=== PATIENT | male | born 1940 | race Caucasian/White ===

== ENCOUNTER 2017-07-30 10:57 | Emergency (ER) | payer MEDICARE, BC ==
--- NOTE | 2017-07-30 11:29 | Emergency Department Record ---
History of Present Illness - General Chief complaint: Rectal bleeding Stated complaint: BLOOD IN STOOL Time Seen by Provider: 07/30/17 11:14 Source: Patient Mode of Arrival: Wheelchair Limitations: No limitations - History of Present Illness Initial comments: pt had rectal bleeding 3x yesterday. there was enough blood that the water turned red. no c/d. no hx of hemorrhoids. he had a colonoscopy 15-20 yrs ago complaint: Gross hematochezia Onset/Timin -: Days(s) Radiation: None Improves with: None Worsens with: None Context: Other Associated Symptoms: Other Treatments Prior to Arrival: None - Related Data Home Medications Medication Instructions Recorded Confirmed Last Taken Aspirin [Adult Aspirin] 81 mg PO DAILY 07/30/17 07/30/17 07/29/17 Previous Rx's Medication Instructions Recorded Amoxicillin/Potassium Clav 1 tab PO BID #20 tab 07/30/17 [Augmentin 875-125 Tablet] Allergies Allergy/AdvReac Type Severity Reaction Status Date / Time No Known Allergies Allergy PT UNSURE Unverified 07/30/17 11:01 OF REACTION Travel Screening - Travel/Exposure Within Last 30 Days Have you traveled within the last 30 days?: Yes Location Detail:: [place] - Travel/Exposure Within Last Year Have you traveled outside the [place] in the last year?: No - Additonal Travel Details Have you been exposed to anyone with a communicable illness?: No - Travel Symptoms Symptom Screening: None Review of Systems Reviewed: No additional complaints except as noted below Constitutional: Reports: As per HPI. Denies: Chills, Fever, Malaise, Night sweats, Weakness, Weight change Eyes: Reports: As per HPI. Denies: Eye discharge, Eye pain, Photophobia, Vision change ENT: Reports: As per HPI. Denies: Congestion, Dental pain, Ear pain, Epistaxis , Hearing loss, Throat pain Respiratory: Reports: As per HPI. Denies: Cough, Dyspnea, Hemoptysis, Stridor, Wheezes Cardiovascular: Reports: As per HPI. Denies: Arrhythmia, Chest pain, Dyspnea on exertion, Edema, Murmurs, Orthopnea, Palpitations, Paroxysmal nocturnal dyspnea, Rheumatic Fever, Syncope Endocrine: Reports: As per HPI. Denies: Fatigue, Heat or cold intolerance, Polydipsia, Polyuria Gastrointestinal: Reports: As per HPI, Hematochezia. Denies: Abdominal pain, Constipation, Diarrhea, Hematemesis, Melena, Nausea, Vomiting Genitourinary: Reports: As per HPI. Denies: Dysuria, Frequency, Hematuria, Incontinence, Retention, Testicular pain, Testicular mass, Urgency Musculoskeletal: Reports: As per HPI. Denies: Arthralgia, Back pain, Gout, Joint swelling, Myalgia, Neck pain Skin: Reports: As per HPI. Denies: Bruising, Change in color, Change in hair/ nails, Lesions, Pruritus, Rash Neurological: Reports: As per HPI, Abnormal gait, Weakness. Denies: Confusion, Headache, Numbness, Paresthesias, Seizure, Tingling, Tremors, Vertigo Psychiatric: Reports: As per HPI. Denies: Anxiety, Auditory hallucinations, Depression, Homicidal thoughts, Suicidal thoughts, Visual hallucinations Hematological/Lymphatic: Reports: As per HPI. Denies: Anemia, Blood Clots, Easy bleeding, Easy bruising, Swollen glands Past Medical History - SOCIAL HISTORY Smoking Status: Never smoker Alcohol Use: None Drug Use: None - RESPIRATORY Hx Respiratory Disorders: Yes Comment:: MG - CARDIOVASCULAR Hx Cardio Disorders: Yes Hx Hypertension: Yes - NEURO Hx Neuro Disorders: Yes Comment:: MG - GI Hx GI Disorders: Yes Hx Diverticulitis: Yes Comment:: Dr Stapleton diagnosed him 10 years ago. - Hx Genitourinary Disorders: Yes Hx Kidney Stones: Yes - ENDOCRINE Hx Endocrine Disorders: Yes Hx Diabetes: Yes - MUSCULOSKELETAL Hx Musculoskeletal Disorders: Yes Comment:: MG - PSYCH Hx Psych Problems: No - HEMATOLOGY/ONCOLOGY Hx Hematology/Oncology Disorders: No Family Medical History Any Significant Family History?: No Physical Exam - General General Appearance: Alert, Oriented x3, Cooperative, Mild distress - Head Head exam: Normal inspection - Eye Eye exam: Normal appearance, PERRL, EOMI Pupils: Normal accommodation - ENT ENT exam: Normal exam, Mucous membranes moist, Normal external ear exam, Normal orophraynx Ear exam: Normal external inspection. negative: External canal tenderness Nasal Exam: Normal inspection. negative: Discharge, Sinus tenderness Mouth exam: Normal external inspection, Tongue normal Teeth exam: Normal inspection. negative: Dental caries Throat exam: Normal inspection. negative: Tonsillar erythema, Tonsillar exudate - Neck Neck exam: Normal inspection, Full ROM. negative: Tenderness - Respiratory Respiratory exam: Normal lung sounds bilaterally. negative: Respiratory distress - Cardiovascular Cardiovascular Exam: Regular rate, Normal rhythm, Normal heart sounds - GI/Abdominal GI/Abdominal exam: Soft, Normal bowel sounds. negative: Tenderness - Rectal Rectal exam: Heme (+) stool - exam: Deferred - Extremities Extremities exam: Normal inspection, Full ROM, Normal capillary refill. negative: Tenderness - Back Back exam: Reports: Normal inspection, Full ROM. Denies: Muscle spasm, Rash noted, Tenderness - Neurological Neurological exam: Alert, CN II-XII intact, Normal gait, Oriented X3 - Psychiatric Psychiatric exam: Normal affect, Normal mood - Skin Skin exam: Dry, Intact, Normal color, Warm Course Vital Signs 07/30/17 11:05 Temperature 97.6 F Pulse Rate 70 Respiratory 18 Rate Blood Pressure 144/79 Pulse Ox 96 - Reevaluation(s) Reevaluation #1: 07/30/17 13:33 d/w dr stapleton Reevaluation #2: 07/30/17 13:34 pt has had no reoccurences of bleeding today. pt given option of being transferred to [facility] or attempt at home. he wants to go home Medical Decision Making - Lab Data Result diagrams: 07/30/17 11:10 07/30/17 11:10 Disposition Disposition: Discharge Clinical Impression: Diverticulitis large intestine Qualifiers: Diverticulitis bleeding: with bleeding Diverticulitis complication: without perforation or abscess Qualified Code(s): K57.33 - Diverticulitis of large intestine without perforation or abscess with bleeding GI bleed Qualifiers: GI bleed type/associated pathology: diverticulitis Qualified Code(s): K57.93 - Diverticulitis of intestine, part unspecified, without perforation or abscess with bleeding Disposition: Home, Self-Care Condition: (1) Good Instructions: Diverticulitis (ED), Rectal Bleeding (ED) Additional Instructions: follow up with family doctor and with dr stapleton. if bleeding reoccurs go to [facility] where a bleeding scan and coiling can be done or return here Prescriptions: Amoxicillin/Potassium Clav [Augmentin 875-125 Tablet] 1 tab PO BID #20 tab Forms: Patient Portal Access Quality - Quality Measures Quality Measures: N/A - Blood Pressure Screening Does Patient Have Any of the Following: Active Dx of HTN Blood Pressure Classification: Hypertensive Reading Systolic Measurement: 144 Diastolic Measurement: 79 Screening for High Blood Pressure: Patient Exclusion, Hx of HTN [G9744]
[2017-07-30 11:30] LABS: BASO % 0.1 % (0-6); HEMATOCRIT 42.2 % (42.0-52.0); HEMOGLOBIN 13.8 gm/dl (14.0-18.0); LYMPH % 13.1 % (16-45); MEAN CELL VOLUME 90.9 fl (81-97); MEAN CORPUSCULAR HEMOGLOBIN 29.7 pg (27-33); MEAN CORPUSCULAR HGB CONC 32.7 g/dl (32-36); MEAN PLATELET VOLUME 10.9 fl (7.4-10.4); MONO % 7.8 % (0-9); PLATELET COUNT 165 K/uL (130-400); RED BLOOD COUNT 4.64 M/uL (4.40-5.70); RED CELL DISTRIBUTION WIDTH 14.3 % (11.5-14.5); WHITE BLOOD COUNT W/O DIFF 8.1 K/uL (4.2-12.2)
[2017-07-30 11:45] LABS: BILIRUBIN,TOTAL 0.3 mg/dL (0.2-1.0); CREATININE 1.3 mg/dL (0.7-1.2)
[2017-07-30 11:46] LABS: TOTAL PROTEIN 7.4 g/dL (6.6-8.7)
[2017-07-30 11:50] LABS: ALB/GLOB RATIO 0.8 (1.1-1.8); ALBUMIN 3.3 g/dL (4.0-5.0)
[2017-07-30] MEDS ORDERED: 0.9 % SODIUM CHLORIDE 1,000 ML BAG IV ONE (12:13)
[2017-07-30 13:24] LABS: URINE APPEARANCE CLEAR; URINE BILIRUBIN NEGATIVE (NEGATIVE); URINE BLOOD NEGATIVE (NEGATIVE); URINE COLOR YELLOW; URINE KETONE NEGATIVE (NEGATIVE); URINE LEUKOCYTE ESTERASE NEGATIVE (NEGATIVE); URINE NITRITE NEGATIVE (NEGATIVE); URINE PROTEIN NEGATIVE (NEGATIVE); URINE UROBILINOGEN 0.2 E.U./dL (0.20 - 1.00)
[2017-07-30] MEDS ORDERED: AMOXICILLIN/POTASSIUM CLAV 875MG/125MG TABLET PO ONE (13:41)
--- NOTE | 2017-07-31 13:16 | CT SCAN REPORT ---
EXAM: EMERGENCY CT OF THE ABDOMEN AND PELVIS WITHOUT CONTRAST HISTORY: GI BLEED, BLOODY STOOL FOR TWO DAYS. TECHNIQUE: Axial CT scan of the abdomen and pelvis was performed without oral or IV contrast at the referring physician's request. Comparison: CT of the abdomen and pelvis 11/12/11. FINDINGS: A tiny amount of hyperdensity along the dependent portion of the gallbladder may represent tiny gallstones. No additional findings to suggest acute cholecystitis evident. There are multiple intrarenal calculi in the right kidney. None are seen in the left. No hydronephrosis or hydroureter on either side with no definite ureteral calculus seen and no bladder calculus evident. There is prostate calcification evident. 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 The reservoir measures about 5 cm in diameter. Evaluation of the bowel and viscera are quite limited without oral or IV contrast. There are multiple masses in the left kidney. The largest is located in the upper pole, today measuring 5.1 cm and previously 3.2 cm. This has a CT density of 9. Just posterior to this there is a 2.7 cm low attenuation mass previously measuring 1.9 cm. There is a new low attenuation mass arising from the medial aspect of the lower pole of the left kidney today measuring 1.6 cm in size, not seen previously. The previously noted relatively dense mass lower pole left kidney has increased in size, previously measuring 1.8 cm and now 3.3 cm. This has a CT density of 55. These are all incompletely evaluation without IV contrast, but presumably represent multiple enlarging variable density renal cysts. If clinically warranted, follow-up MRI could be obtained for further evaluation. Given the limitation with lack of contrast, no definite hepatic, splenic, adrenal, or pancreatic mass identified. Left inguinal hernia containing adipose tissue, but no bowel. There may be a small right inguinal hernia as well also containing adipose tissue, but no bowel. Moderate diverticulosis left side of the colon. Slight haziness along the anterior aspect of a short segment of the sigmoid colon is nonspecific and may be of no clinical significance although very minor changes of acute diverticulitis could not absolutely be excluded. The appendix is visualized and appears negative. Postop sternotomy. No free intraperitoneal air or free intraperitoneal fluid evident. Multilevel degenerative change in the lumbar spine and degenerative disk disease at the lumbosacral interspace. Prominent spurring in the lower thoracic spine as well. IMPRESSION: 1. QUESTIONABLE CHOLELITHIASIS. NO ADDITIONAL FINDINGS TO SUGGEST ACUTE CHOLECYSTITIS. 2. NONOBSTRUCTING CALCULI RIGHT KIDNEY. NO HYDRONEPHROSIS OR URETERAL CALCULUS EITHER SIDE. 3. MULTIPLE ENLARGING MASSES LEFT KIDNEY ALL PRESUMABLY VARIABLE DENSITY ENLARGING CYSTS ALTHOUGH NONSPECIFIC DESCRIBED ABOVE. 4. PROMINENT DIVERTICULOSIS SIGMOID COLON. MINOR FOCUS OF DIVERTICULITIS COULD NOT BE EXCLUDED. 5. 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 6. LEFT INGUINAL HERNIA CONTAINING ADIPOSE TISSUE BUT NO BOWEL. 7. POSTOP STERNOTOMY. 8. MULTILEVEL DEGENERATIVE CHANGE IN THE SPINE. JOB NUMBER: [id number] [facility]
== END 2017-07-30 14:00 | disposition home or self-care (01) ==
LOC: ER 10:57
DX: K57.33 Diverticulitis of large intestine without perforation or abscess with bleeding (principal); I10 Essential (primary) hypertension
CPT/HCPCS: 74176; 80053; 81003; 85025; 96360; 99284; J7030